=== PATIENT | female | born 1980 | race Caucasian/White ===

== ENCOUNTER 2018-10-18 11:17 | Emergency (ER) | payer SELFPAY ==
[2018-10-18 11:27] VITALS: BP 117/74; PULSE 73; RESP 24; TEMP 36.5; O2SAT 97
--- NOTE | 2018-10-20 20:11 | ED.GENADUL_ITS ---
Discharge Plan Disposition Patient Disposition: HOME Condition: Fair Discharge Details Chief Complaint: DentalOral Clinical Impression: Abscess, dental Primary Care Provider: None,None ED Provider: Cira Davila Home Meds and New Rx's Prescriptions: New penicillin V potassium 500 mg tablet 500 mg PO QID Qty: 40 RF: 0 Discharge Instructions Instructions: Dental Abscess (ED) Additional Instructions: Keep head of bed elevated. Ice to the cheek for comfort. Tylenol for soreness if needed with food. use antibiotic as prescribed. Warm salt water rinses. Follow-up with dentist as soon as possible. Return for increase in swelling, pain or worsening as discussed sooner if needed Discharge Data Discharge Date/Time-TO BE ENTERED AT DEPARTURE: 10/18/18 12:10 Medical Decision Making Patient with early dental abscess who does not desire incision and drainage at this time. Patient will consent to antibiotic treatment. Patient treated appropriately with antibiotics and encouraged follow-up with her dentist. Patient has tolerated penicillin in the past. Reports mild GI upset with penicillin. Counseled regarding appropriate care and management in addition to conservative treatments. Patient reports her understanding and agrees with plan of care. HPI General Date/Time Provider Initiated Documentation: 10/18/18 12:00 . HPI Narrative: Patient presents for complaints of dental pain and concern of possible dental abscess. Patient reports widespread dental caries. Patient reports pain for the last 3 days. Mild difficulty sleeping. Patient denies fever, chills, nausea vomiting. Eating drink without difficulty. No other complaints or concerns. Denies facial swelling. Related Data Home Medications Medication Instructions Recorded Confirmed penicillin V potassium 500 mg PO QID #40 tab 10/18/18 Previous Rx's Medication Instructions Recorded penicillin V potassium 500 mg PO QID #40 tab 10/18/18 Allergies Allergy/AdvReac Type Severity Reaction Status Date / Time cefaclor [Cefaclor] Allergy Unknown Unverified 10/18/18 11:34 diphenhydramine Allergy Unverified 10/18/18 11:34 ibuprofen Allergy Unverified 10/18/18 11:34 General Stated Complaint: DentalOral MELCHOR: 3 Review of Systems Review of Systems Narrative: CONSTITUTIONAL: The patient denies fevers, chills. EYES: Denies vision changes, blurry vision, or eye pain. ENT: Denies hearing changes, tinnitus, vertigo, sore throat. Dental pain CARDIAC: Denies chest pain, SOB. RESPIRATORY: Denies cough, sputum. Denies difficulty breathing. GASTROINTESTINAL: Denies abdominal pain, changes in bowel, vomiting or nausea. GENITOURINARY: Denies dysuria, or frequency of urination. MUSCULOSKELETAL: Denies Joint pain, gait changes. NEUROLOGIC: Denies headaches, Denies focal weakness. Denies numbness. INTEGUMENT: Denies rashes. PSYCHIATRIC: Denies behavior changes. Denies anxiety or depression. ENDOCRINOLOGY: Denies fatigue. PSYCHIATRY: Denies depression, agitation or anxiety ROS Unobtainable: All systems reviewed & are unremarkable except as noted in HPI and below [facility] Social History Smoking/Tobacco Use Status: Current every day Alcohol Intake: never Drug use: Occasionally Substance use type: does not use Do you feel safe at home: Yes Do you feel safe in your relationship?: Yes Exam Narrative Exam Narrative: CONST: Healthy appearing patient, in no acute distress. Well hydrated. Alert and alert. HENMT: Head nomocephalic, normal to inspection. Atraumatic. Hearing grossly normal. Patient has widespread dental caries with early abscess formation in the inner aspect of the tooth in the right lower jaw. EYES: General normal appearance. Alignment normal. Eyelids normal. Conjunctiva normal. NECK: Normal visual inspection. FROM. Trachea midline. No Midline tenderness. CHEST: Normal insepection of the chest. RESP: Normal respiratory effort. Speaking full sentences. No cough. No audible wheezing. No retractions. CARDIO: No JVD. MUSCULOSKELETAL: Normal Gait. FROM of all extremities. SKIN: Normal. Dry. No rashes. NEURO: Alert and awake. Speech clear. PSYCH: Normal affect. Cooperative. Course Vital Signs Vital signs: Vital Signs Temperature 36.5 C 10/18/18 11:27 Pulse 73 10/18/18 11:27 Respiratory Rate 24 10/18/18 11:27 Blood Pressure 117/74 10/18/18 11:27 Pulse Oximetry 97 10/18/18 11:27 Temperature 36.5 C 10/18/18 11:27 Temperature Source Skin 10/18/18 11:27 Pulse 73 10/18/18 11:27 Respiratory Rate 24 10/18/18 11:27 Respiratory Effort Non-Labored 10/18/18 11:33 Blood Pressure 117/74 09/12/19 11:27 Blood Pressure Position Sitting 10/18/18 11:27 Pulse Oximetry 97 10/18/18 11:27 Oxygen Delivery Method Room Air 10/18/18 11:27 Oxygen Flow Rate 0 10/18/18 11:27 Pain Level 10 10/18/18 12:20
== END 2018-10-18 12:10 | disposition home or self-care (01) ==
LOC: ER 12:48
PROVIDERS: Emergency Provider Physician Assistant
DX: K04.7 Periapical abscess without sinus (principal)
CPT/HCPCS: 99283

== ENCOUNTER 2023-03-11 14:53 | Emergency (ER) | payer SELFPAY ==
[2023-03-11] VITALS (29 sets, daily range): BP systolic 99–123; BP diastolic 70–94; PULSE 47–147; RESP 13–29; TEMP 35.5; O2SAT 96–100
--- NOTE | 2023-03-11 15:08 | ED.GENADUL_ITS ---
HPI General Mode of arrival: ambulatory . Date/Time Provider Initiated Documentation: 03/11/23 14:54 . Limitations to Documentation: no limitations . Information obtained by: patient . History of Present Illness 42 year old F presents to the emergency department with the chief complaint of opiate withdrawal, described as moderate, Patient started experiencing this hour(s) (4) and it has been constant. No relieving factors improve symptom(s), No exacerbating factors reported . Patient did receive the following treatments prior to arrival, none Related Data Home Medications Medication Instructions Recorded Confirmed Unknown [No Known Home Meds] 03/11/23 03/11/23 Allergies Allergy/AdvReac Type Severity Reaction Status Date / Time cefaclor [Cefaclor] Allergy Unknown Unverified 03/11/23 15:02 diphenhydramine Allergy Unverified 03/11/23 15:02 ibuprofen Allergy Unverified 03/11/23 15:02 General Stated Complaint: DrugWithdr/MAT MELCHOR: 3 Review of Systems All systems reviewed & are unremarkable except as noted in HPI and below Constitutional Constitutional: Denies chills, Denies fever(s) and Denies weakness Cardiovascular Cardiovascular: Denies chest pain and Denies dyspnea Respiratory Respiratory: Denies cough and Denies dyspnea Gastrointestinal Gastrointestinal: Denies abdominal pain, Reports diarrhea, Reports nausea and Reports vomiting Integumentary/Breasts Skin/Breast: Denies rash Neurologic Neurologic: Denies weakness Exam Const Orientation: alert HENME Head: normal to inspection Ears: external ears normal General nose exam: external nose normal Mouth: moist mucous membranes Eyes General: appearance normal, both eyes and all related structures Neck Neck: normal visual inspection Resp Effort & Inspection: normal respiratory effort and able to speak in complete sentences Auscultation: clear to auscultation bilaterally Cardio Jugular venous pressure: no JVD Rate: regular rate GI Palpation: not firm, no guarding and nontender Skin General skin exam: no rashes or lesions noted Neuro General: patient alert and patient oriented x3 Extrem General: normal to inspection Psych Mental Status: mental status grossly normal Course Vital Signs Vital signs: Vital Signs Temperature 35.5 C L 03/11/23 14:56 Pulse 67 03/11/23 14:56 Respiratory Rate 18 03/11/23 14:56 Blood Pressure 118/83 03/11/23 14:56 Pulse Oximetry 100 03/11/23 14:56 Temperature 35.5 C L 03/11/23 14:56 Temperature Source Temporal Artery Scan 03/11/23 14:56 Pulse 67 03/11/23 14:56 Respiratory Rate 18 03/11/23 14:56 Respiratory Effort Normal 03/11/23 15:03 Respiratory Pattern Tachypnea 03/11/23 15:03 Blood Pressure 118/83 03/11/23 14:56 Blood Pressure Position Sitting 03/11/23 14:56 Pulse Oximetry 100 03/11/23 14:56 Oxygen Delivery Method Room Air 03/11/23 14:56 Oxygen Flow Rate 0 03/11/23 14:56 Medical Decision Making 42 yo female who states the last 3 years she has used fentanyl and heroin routinely comes in with complaints of having nausea/vomiting and diarrhea and chills for 4 hours and last used this morning. Denies chest pain, dyspnea, fevers, abdominal pain. She does appear anxious during exam, caox4 speaking clearly, no tremors noted. She denies iv drug use states only smokes/snorts it. Suspect opiate withdrawal, will treat with clonidine and ativan and reassess. pt sleeping and awakens easily to verbal stimuli, stable vitals, she declines buprenorphine, she will f/u with [facility] and return precautions given. She did have abnormalities on her cbc, she has no fevers and again denies ivdu so doubt sepsis, advised she should have a repeat cbc done with her pcp within a month Differential Diagnosis Differential Diagnosis: opiate withdrawal, drug abuse Quality:SDOH Health Related Social Needs: Health related social needs risk of homeless, material hardship, food insecurity, transpo insecurity, personal safety PFSH All Active Problems (Updated 03/11/23 @ 17:16 by Domingo Phillips MD) Acute opioid withdrawal (Acute) Social History Smoking/Tobacco Use Status: Current every day Smoking risk assessment performed?: Yes Alcohol Intake: never Drug use: Daily Substance use type: does not use Do you feel safe at home: Yes Do you feel safe in your relationship?: Yes Discharge Plan Disposition Patient Disposition: Home Condition: Stable Discharge Details Clinical Impression: Acute opioid withdrawal Primary Care Provider: None,None ED Provider: Domingo Phillips Home Meds and New Rx's Prescriptions: No Action No Known Home Meds Discharge Instructions Additional Instructions: follow up with the [facility] Monday you should have a repeat cbc lab test done with your primary care provider within 1 month if you feel more ill, have severe worsening symptoms or new symptoms such as difficulty breathing return to the emergency department
[2023-03-11 15:28] LABS: Abs Immature Grans 0.06 10^3/uL (0.0-0.06); Absolute Basophil Count 0.05 10^3/uL (0.0-0.2); Absolute Lymphocyte Count 1.94 10^3/uL (1.2-3.4); Basophils % 0.3; HCT 39.1 % (36.0-46.0); HGB 12.5 g/dL (11.2-15.7); Immature Grans % 0.4; Lymphocytes % 12.4; MCH 21.5 pg (27.0-33.0); MCV 67 fL (80-95); MPV 10.5 fL (8.0-11.0); Monocytes % 5.2; Neutrophils % 81.7; Platelet Count 284 10^3/uL (130-400); RBC 5.82 10^6/uL (3.93-5.22); RDW 14.8 % (11.7-14.6); RDW-SD 33.9 fL; WBC 15.68 10^3/uL (4.4-10.8)
[2023-03-11] MEDS: Normal Saline 1,000 ML 1000 ML IV (15:31)
[2023-03-11] MEDS: LORazepam 2 MG/ML VIAL 1 MG IVP (15:32)
[2023-03-11] MEDS: cloNIDine 0.1 MG TAB PO (15:32)
[2023-03-11 15:36] LABS: Absolute Monocyte Count 0.82 10^3/uL (0.1-0.8); Absolute Neutrophil Count 12.81 10^3/uL (1.2-6.7)
[2023-03-11 15:40] LABS: Magnesium 2.1 mg/dL (1.8-2.4)
[2023-03-11 15:44] LABS: ALT 20 U/L (14-59); AST 10 U/L (15-37); Albumin 3.6 g/dL (3.4-5.0); Alkaline Phosphatase 68 U/L (46-116); BUN 10 mg/dL (7-18); Bilirubin, Total 0.4 mg/dL (0.2-1.0); CREATININE 0.7 mg/dL (0.55-1.02); Calcium 8.9 mg/dL (8.5-10.1); Estimated GFR 111.36 (mL/min/1.73m2); Glucose 95 mg/dL (74-106)
[2023-03-11 15:49] LABS: Diff Comment RBC Morph Reviewed; Microcytosis 2+; Poikilocytes 1+; Polychromasia Present
[2023-03-11 15:50] LABS: Anion Gap 6.5 mmol/L (3-11); CO2 27.5 mmol/L (21.0-32.0); Chloride 105 mmol/L (98-107); Potassium 3.9 mmol/L (3.5-5.1); Sodium 139 mmol/L (136-145)
== END 2023-03-11 17:46 | disposition home or self-care (01) ==
PROVIDERS: Emergency Provider Emergency Medicine
DX: F11.93 Opioid use, unspecified with withdrawal (principal)
CPT/HCPCS: 80053; 96361; 96374; 99284; 83735; 85025; J2060

== ENCOUNTER 2023-05-21 11:11 | Emergency (ER) | payer SELFPAY ==
[2023-05-21 11:15] VITALS: BP 95/63; PULSE 52; RESP 18; TEMP 37; O2SAT 99
--- NOTE | 2023-05-21 11:23 | ED.GENADUL_ITS ---
Discharge Plan Disposition Patient Disposition: Home Condition: Stable Discharge Details Chief Complaint: InsectBite Clinical Impression: Tick bite Primary Care Provider: Unknown,Unknown ED Provider: Domingo Phillips Home Meds and New Rx's Prescriptions: No Action No Known Home Meds Discharge Instructions Additional Instructions: Follow-up with your primary care provider as needed Return to the emergency department if you feel more ill, develop high fevers or a bull's-eye lesion on your body. HPI General Mode of arrival: ambulatory . Date/Time Provider Initiated Documentation: 05/21/23 11:18 . Limitations to Documentation: no limitations . Information obtained by: patient . History of Present Illness 42 year old F presents to the emergency department with the chief complaint of tick bite, described as mild, and is localized to the head. Patient reports no radiation. and it has been now resolved. No relieving factors improve symptom(s), No exacerbating factors reported . Patient notes no other symptoms.. Patient did receive the following treatments prior to arrival, none Related Data Home Medications Medication Instructions Recorded Confirmed Unknown [No Known Home Meds] 03/11/23 03/11/23 Allergies Allergy/AdvReac Type Severity Reaction Status Date / Time tree nut Allergy Severe Anaphylaxis Verified 05/21/23 11:19 cefaclor [Cefaclor] Allergy Unknown Other (See Unverified 05/21/23 11:19 Comment) diphenhydramine Allergy Other (See Unverified 05/21/23 11:19 Comment) ibuprofen Allergy Other (See Unverified 05/21/23 11:19 Comment) General Stated Complaint: InsectBite MELCHOR: 4 Review of Systems All systems reviewed & are unremarkable except as noted in HPI and below Constitutional Constitutional: Denies chills, Denies fever(s) and Denies weakness Cardiovascular Cardiovascular: Denies chest pain and Denies dyspnea Respiratory Respiratory: Denies cough and Denies dyspnea Gastrointestinal Gastrointestinal: Denies abdominal pain, Denies nausea and Denies vomiting Musculoskeletal Musculoskeletal: Denies joint swelling Neurologic Neurologic: Denies weakness Exam Const General: no acute distress Orientation: alert HENMT Head: normal to inspection Ears: external ears normal General nose exam: external nose normal Mouth: moist mucous membranes Eyes General: appearance normal, both eyes and all related structures Neck Neck: normal visual inspection Resp Effort & Inspection: normal respiratory effort and able to speak in complete sentences Cardio Rate: regular rate Skin General skin exam: no rashes or lesions noted Neuro General: patient alert and patient oriented x3 Extrem General: normal to inspection Psych Mental Status: mental status grossly normal Course Vital Signs Vital signs: Vital Signs Temperature 37.0 C 05/21/23 11:15 Pulse 52 L 05/21/23 11:15 Respiratory Rate 18 05/21/23 11:15 Blood Pressure 95/63 L 05/21/23 11:15 Pulse Oximetry 99 05/21/23 11:15 Temperature 37.0 C 05/21/23 11:15 Temperature Source Tympanic 05/21/23 11:15 Pulse 52 L 05/21/23 11:15 Respiratory Rate 18 05/21/23 11:15 Blood Pressure 95/63 L 05/21/23 11:15 Pulse Oximetry 99 05/21/23 11:15 Medical Decision Making 42-year-old female comes in stating that she removed a tick from her right posterior head this morning. She is unsure exactly how long it was on but thinks it was small over 24 hours. She removed it from the right posterior head, states most of the tick seemed intact. She has no other symptoms no fevers or chills or bodyaches. She has been very mild erythema about 5 mm in diameter on the right posterior head where she removed the tick without any evidence of retained foreign body. No bull's-eye lesion. Given unclear how long the tick was on for will give one-time dose of doxycycline here. Advised to follow-up with PCP as needed return precautions given Differential Diagnosis Differential Diagnosis: Tick bite, wound Quality:SDOH Health Related Social Needs: Health related social needs risk of homeless, material hardship, food insecurity, transpo insecurity, personal safety PFSH All Active Problems (Updated 05/21/23 @ 11:27 by Domingo Phillips MD) Tick bite (Acute) Social History Smoking/Tobacco Use Status: Current every day Smoking risk assessment performed?: Yes Alcohol Intake: never Drug use: Daily Substance use type: does not use Do you feel safe at home: Yes Do you feel safe in your relationship?: Yes
[2023-05-21 11:38] VITALS: BP 95/63; PULSE 52; RESP 18; TEMP 37; O2SAT 99
[2023-05-21] MEDS: Doxycycline Hyclate 100 MG CAP 200 MG PO (13:08)
== END 2023-05-21 11:45 | disposition home or self-care (01) ==
PROVIDERS: Emergency Provider Emergency Medicine
DX: W57.XXXA Bitten or stung by nonvenomous insect and other nonvenomous arthropods, initial encounter; S00.06XA Insect bite (nonvenomous) of scalp, initial encounter; F17.210 Nicotine dependence, cigarettes, uncomplicated
CPT/HCPCS: 99283

== ENCOUNTER 2024-02-05 09:26 | Emergency (ER) | payer MEDICAID, SELFPAY ==
[2024-02-05 09:32] VITALS: BP 119/91; PULSE 68; RESP 18; TEMP 36.6; O2SAT 96
[2024-02-05] MEDS: Acetaminophen 500 MG TAB 1000 MG PO (10:14)
[2024-02-05] MEDS: Prochlorperazine 10 MG/2 ML VIAL IVP (10:15)
[2024-02-05] MEDS: methylPREDNISolone SUCC 125 MG VIAL IVP (10:15)
--- NOTE | 2024-02-05 10:15 | DI.CT_ITS ---
Exam(s) CT HEAD WO EXAM: CT HEAD WO CLINICAL HISTORY: left sided headache, eval for tumor. TECHNIQUE: Imaging Protocol: Axial computed tomography images with coronal and sagittal reformatted images were created and reviewed COMPARISON: No exams were available for comparison FINDINGS: There are no skull fractures. There is fluid in the partially included left maxillary sinus noted con sistent with sinusitis. Also some fluid in the ipsilateral left-sided ethmoidal air cells. Mild flu id left frontal sinus. Sphenoid sinuses are clear. Mastoid air cells clear. There is no evidence of intracranial hemorrhage, mass effect, or shift of midline structures. There are no extra-axial fluid collections. The ventricles are not enlarged or shifted and there is no blo od within the ventricular system nor within the basal cisterns. IMPRESSION: No acute intracranial findings on this noninfused CT scan of the brain. Left-sided sinusitis as described above. Called by myself to ER physician 02/05/2024 10:44 a.m. RADIATION DOSE DELIVERED: 840.98mGy.cm Total DLP DATA REPOSITORY: All CT scans at this facility are submitted to the National Radiology Data Registry (NRDR) Dose Index Registry (DIR) with the [employer] ([employer]). RADIATION OPTIMIZATION: All CT scans at this facility use at least one of these dose optimization te chniques: automated exposure control; mA and/or kV adjustment per patient size (includes targeted exa ms where dose is matched to clinical indication); or iterative reconstruction.
[2024-02-05 11:24] VITALS: BP 92/50; PULSE 51; RESP 16; O2SAT 96
--- NOTE | 2024-02-05 11:24 | ED.GENADUL_ITS ---
Discharge Plan Disposition Patient Disposition: Home Condition: Good Discharge Details Clinical Impression: Pain, dental, Left maxillary sinusitis, Left temporal headache Primary Care Provider: Unknown,Unknown ED Provider: Feliciano Nieto Home Meds and New Rx's Prescriptions: New amoxicillin-pot clavulanate 875-125 mg tablet 1 tab PO BID 14 Days Qty: 28 0RF No Action methadone [Methadose] 10 mg/mL concentrate 105 mg PO DAILY Patient Comments: @ [facility] Discharge Instructions Instructions: Chronic sinusitis, Dental Pain ED Additional Instructions: At this time you have evidence of sinusitis. Please take the antibiotic as directed which will treat both your teeth and your sinus infection. Please use [place] Bhat at home and [id number] nasal decongestions to help drain the sinus infection. If you notice any worsening of your symptoms, or any new symptoms such as vomiting, diarrhea, fever, chills, shortness of breath, chest pain, numbness, weakness, or fainting , please return immediately to the emergency department for reevaluation. Please follow up with your primary care provider as soon as possible for reassessment and reevaluation. As always, it was a pleasure participating in your medical care today. Discharge Data Discharge Date/Time-TO BE ENTERED AT DEPARTURE: 02/05/24 11:34 HPI General Date/Time Provider Initiated Documentation: 02/05/24 09:42 . HPI Narrative: 43-year-old female with a past medical history of allergies to cefaclor, tree nuts, Benadryl and ibuprofen, with a past surgical history of cholecystectomy and tubal ligation presents today for evaluation of left-sided headache. Patient states that for the last 5 days she has had a mild left-sided headache, it started in the left temporal region, but then recently has transition to a pressure behind her left eye, as well as pain in her left upper teeth. She does have a family history positive for brain tumor and glaucoma. She denies any discharge from the mouth. She did take an Augmentin at home which was an old antibiotic that she had lying around from a previous dental infection. She has taken some NSAID therapy with minimal improvement. She denies any fever or chills. Denies any neck pain or stiffness. She denies any other complaints at this time. No trauma. No vision changes. Her headache is made worse with light and loud noise. The patient denies any headache red flags of worst headache of life, thunderclap headache, neck pain, fever, chills, concerning family history of polycystic kidney disease, Marfan syndrome, Lucía- Danlos syndrome, abdominal aortic aneurysm, aortic dissection, or intracranial aneurysm. Additionally the patient does admit to a history of migraines in the past which she states this feels quite similar to. Related Data Home Medications ?Medication ?Instructions ?Recorded ?Confirmed amoxicillin 875 mg-potassium 1 tab PO BID 14 days #28 tabs 02/05/24 clavulanate 125 mg tablet methadone 10 mg/mL oral 105 mg PO DAILY 02/05/24 02/05/24 concentrate (Methadose) Previous Rx's ?Medication ?Instructions ?Recorded amoxicillin 875 mg-potassium 1 tab PO BID 14 days #28 tabs 02/05/24 clavulanate 125 mg tablet Allergies Allergy/AdvReac Type Severity Reaction Status Date / Time tree nut Allergy Severe Anaphylaxis Verified 02/05/24 09:34 cefaclor (Cefaclor) Allergy Unknown Other (See Unverified 02/05/24 09:34 Comment) diphenhydramine Allergy Other (See Unverified 02/05/24 09:34 Comment) ibuprofen Allergy Other (See Unverified 02/05/24 09:34 Comment) General Stated Complaint: DentalOral MELCHOR: 4 Exam Narrative Exam Narrative: 1.Const: Well-nourished, Well-developed, appearing stated age 2.Eyes: PERRL, no conjunctival injection, and symmetrical lids. 3.ENT: Atraumatic external nose and ears. Moist MM. Neck: Symmetric, trachea mi dline, No thyromegaly. Notably poor dentition throughout, however no evidence of periapical abscess on palpation of the upper and lower teeth. No palpable tender temporal artery. Patient demonstrates good movement of cervical neck. There is no nuchal rigidity, no nuchal tenderness. Patient is able to flex the neck without any difficulty or significant pain. Negative Kernig's and Brudzinski sign. Tympanic membranes are walker and pearly. 4.CVS: +S1/S2, Peripheral pulses 2+ and equal in all extremities. Brisk capillary refill in all extremities. 5.RESP: Unlabored respiratory effort. Clear to auscultation bilaterally. No wheezes rales or rhonchi 6.GI: Soft, Nontender/Nondistended, No hepatosplenomegaly. No guarding or rebound. 7.MSK: Normocephalic/Atraumatic, Extremities w/o deformity or ttp No cyanosis or clubbing, Normal movement of all extremities 8.Skin: Warm, Dry. No rashes or lesions. 9.Neuro: fisher weir II-XII grossly intact. Sensation grossly intact, no focal neurologic deficits. All 6 cardinal planes of vision are fully intact. No evidence of rotatory or vertical nystagmus. The patient demonstrated a normal [id number], good dexterity. There was no evidence of dysdiadochokinesia. Patient was able to ambulate without difficulty. There was no wide-based gait. Romberg testing was normal. [id number] testing was normal. Sensation was intact bilaterally as well as muscle strength bilaterally for all extremities. Patient was able to verbalize butter cup with no slurring, or miss pronunciation. 10.Psych: (AAO) x3. Appropriate mood and affect Course Vital Signs Vital signs: Vital Signs Temperature 36.6 C 02/05/24 09:32 Pulse 68 02/05/24 09:32 Respiratory Rate 18 02/05/24 09:32 Blood Pressure 119/91 H 02/05/24 09:32 Pulse Oximetry 96 02/05/24 09:32 Temperature 36.6 C 02/05/24 09:32 Temperature Source Oral 02/05/24 09:32 Pulse 68 02/05/24 09:32 Respiratory Rate 18 02/05/24 09:32 Blood Pressure 119/91 H 02/05/24 09:32 Blood Pressure Position Sitting 02/05/24 09:32 Pulse Oximetry 96 02/05/24 09:32 Oxygen Delivery Method Room Air 02/05/24 09:32 Oxygen Flow Rate 0 02/05/24 09:32 Pain Level 8 02/05/24 09:32 Medical Decision Making 43-year-old female with a past medical history of allergies to cefaclor, tree nuts, Benadryl and ibuprofen, with a past surgical history of cholecystectomy and tubal ligation presents today for evaluation of left-sided headache. Patient states that for the last 5 days she has had a mild left-sided headache, it started in the left temporal region, but then recently has transition to a pressure behind her left eye, as well as pain in her left upper teeth. She does have a family history positive for brain tumor and glaucoma. S he denies any discharge from the mouth. She did take an Augmentin at home which was an old antibiotic that she had lying around from a previous dental infection. She has taken some NSAID therapy with minimal improvement. She denies any fever or chills. Denies any neck pain or stiffness. She denies any other complaints at this time. No trauma. No vision changes. Her headache is made worse with light and loud noise. The patient denies any headache red flags of worst headache of life, thunderclap headache, neck pain, fever, chills, concerning family history of polycystic kidney disease, Marfan syndrome, Lucía- Danlos syndrome, abdominal aortic aneurysm, aortic dissection, or intracranial aneurysm. Additionally the patient does admit to a history of migraines in the past which she states this feels quite similar to. Physical exam demonstrates reassuring assessment, no neurologic deficits, no new nuchal rigidity to suggest meningitis. No evidence of tympanic membrane infection or abnormality otherwise. No mastoid tenderness. Differential includes migraine headache, tumor is unlikely but on the differential. Optic pressure testing was performed, she demonstrates equal pressures bilaterally at 21. No evidence to suggest acute angle-closure glaucoma. Additionally sinusitis and dental infection could certainly be a component of her symptomatology. Symptoms appear clinically inconsistent with optic neuritis with no vision changes for coloration, they appear inconsistent with giant cell temporal arteritis with no temporal artery tenderness. Will get CT imaging of the head, treat the patient's pain with migraine cocktail, monitor closely and reassess. 11:[address] imaging shows left-sided sinusitis, no acute intracranial process otherwise. Patient has notable relief of her symptomatology after medications and feels well and was able to get some rest. We will treat with Augmentin for home use for both the sinusitis and the cysts back to dental infection. Recommend follow-up with her dentist. Recommend continued NSAID therapy at home and rest. Discussed red flags for which to return. Patient appears neurologically intact. Patient stable for discharge. I have extensively reviewed the treatment plan and discharge instructions with the patient. I have addressed all patient concerns at this time. The patient was made aware of what symptoms to monitor for that would warrant a return to the emergency department. Discussed the plan with the patient, they demonstrate verbal understanding and agreement with our assessment and plan at this time. The documentation in this chart was dictated using [employer] dictation software. Please excuse any dictation errors. FINDINGS: There are no skull fractures. There is fluid in the partially included left maxillary sinus noted consistent with sinusitis. Also some fluid in the ipsilateral left-sided ethmoidal air cells. Mild fluid left frontal sinus. Sphenoid sinuses are clear. Mastoid air cells clear. There is no evidence of intracranial hemorrhage, mass effect, or shift of midline structures. There are no extra-axial fluid collections. The ventricles are not enlarged or shifted and there is no blood within the ventricular system nor within the basal cisterns. IMPRESSION: No acute intracranial findings on this noninfused CT scan of the brain. Left-sided sinusitis as described above. Quality:SDOH Health Related Social Needs: Health related social needs housing instability, house d, with risk of homelessness(Z59.811), material hardship(utilities)(Z59.87), food insecurity(Z59.41), transportation insecurity(Z59.82), problem related to primary support group(Z63.9) PFSH All Active Problems (Updated 02/05/24 @ 11:25 by Feliciano Nieto DO) Left temporal headache (Acute) Left maxillary sinusitis (Acute) Pain, dental (Acute) Social History Smoking/Tobacco Use Status: Current every day Tobacco Type: cigarettes and e- cigarettes Smoking risk assessment performed?: Yes Alcohol Intake: never Drug use: Daily Substance use type: marijuana Housing: other Do you feel safe at home: Yes Do you feel safe in your relationship?: Yes
== END 2024-02-05 11:34 | disposition home or self-care (01) ==
PROVIDERS: Emergency Provider Student in an Organized Health Care Education/Training Program
DX: R51.9 Headache, unspecified (principal); J01.00 Acute maxillary sinusitis, unspecified; K08.89 Other specified disorders of teeth and supporting structures
CPT/HCPCS: 96374; 96375; 99284; 70450; J0780; J1200; J1885; J2919

== ENCOUNTER 2024-03-28 09:13 | Emergency (ER) | payer MEDICAID, SELFPAY ==
[2024-03-28] VITALS (51 sets, daily range): BP systolic 95–99; BP diastolic 57–72; PULSE 51–85; RESP 18; TEMP 36.7; O2SAT 92–97
[2024-03-28 10:31] LABS: COVID-19 PCR Negative (Negative); Influenza A PCR Positive (Negative); Influenza B PCR Negative (Negative); RSV PCR Negative (Negative)
[2024-03-28 10:32] LABS: Source Nasopharynx
[2024-03-28] MEDS: Lactated Ringers 1,000 ML 1000 ML IV (10:55)
[2024-03-28] MEDS: Metoclopramide 10 MG/2 ML VIAL IVP (10:55)
[2024-03-28] MEDS: ACETAMINOPHEN 1,000 MG/100 ML BAG 400 MG IVPB (10:56)
[2024-03-28 11:04] LABS: Abs Immature Grans 0.01 10^3/uL (0.0-0.06); Absolute Basophil Count 0.03 10^3/uL (0.0-0.2); Absolute Lymphocyte Count 1.14 10^3/uL (1.2-3.4); Absolute Monocyte Count 0.58 10^3/uL (0.1-0.8); Absolute Neutrophil Count 2.99 10^3/uL (1.2-6.7); Basophils % 0.6 %; HCT 32.7 % (36.0-46.0); HGB 10.6 g/dL (11.2-15.7); Immature Grans % 0.2 %; MCH 22.7 pg (27.0-33.0); MCHC 32.4 % (32.0-36.0); MCV 70 fL (80-95); MPV 11.2 fL (8.0-11.0); Monocytes % 12.2 %; Platelet Count 202 10^3/uL (130-400); RBC 4.67 10^6/uL (3.93-5.22); RDW 14.7 % (11.7-14.6); RDW-SD 35.9 fL; WBC 4.75 10^3/uL (4.4-10.8)
[2024-03-28 11:25] LABS: ALT 17 U/L (14-59); AST 16 U/L (15-37); Albumin 3.2 g/dL (3.4-5.0); Alkaline Phosphatase 58 U/L (46-116); Anion Gap 7.5 mmol/L (3-11); BUN 6 mg/dL (7-18); Bilirubin, Total 0.25 mg/dL (0.2-1.0); CO2 28.5 mmol/L (21.0-32.0); CREATININE 0.7 mg/dL (0.55-1.02); Calcium 8.3 mg/dL (8.5-10.1); Chloride 104 mmol/L (98-107); Estimated GFR 110.67 (mL/min/1.73m2); Glucose 83 mg/dL (74-106); Magnesium 2.1 mg/dL (1.8-2.4); Potassium 4.3 mmol/L (3.5-5.1); Sodium 140 mmol/L (136-145); Total Protein 6.5 g/dL (6.4-8.2)
[2024-03-28 11:30] LABS: Diff Comment Diff Reviewed; Microcytosis 2+; Polychromasia Present
[2024-03-28 11:31] LABS: Poikilocytes 1+
[2024-03-28 11:34] LABS: Troponin I < 4 ng/L (<or=51)
[2024-03-28 12:29] LABS: Creatine Kinase 55 U/L (26-192)
--- NOTE | 2024-03-28 12:35 | ED.GENADUL_ITS ---
Discharge Plan Disposition Patient Disposition: Home Condition: Stable Discharge Details Clinical Impression: Influenza A, Anemia Primary Care Provider: Unknown,Unknown ED Provider: Rosales Cantor Home Meds and New Rx's Prescriptions: New metoclopramide HCl [Reglan] 10 mg tablet 10 mg PO BID PRN PRN (Reason: nausea and vomiting) Qty: 10 0RF Continued methadone [Methadose] 10 mg/mL concentrate 95 mg PO DAILY Patient Comments: verified dose 03/28/24 w/Екатерина @ [facility]- last dose given 03/27/24 Discharge Instructions Instructions: Flu, Adult ED Additional Instructions: Please drink plenty of fluid to stay hydrated. Allow for plenty of rest. Your hemoglobin was low today. This is consistent with anemia. Please be sure to follow-up with your doctor. Additional outpatient diagnostic testing may be necessary. Please follow-up with your primary care physician. Call today. Return to the emergency department immediately for any worsening or new concerning symptoms. Discharge Data Discharge Date/Time-TO BE ENTERED AT DEPARTURE: 03/28/24 13:09 HPI General Mode of arrival: ambulatory . Date/Time Provider Initiated Documentation: 03/28/24 09:29 . Limitations to Documentation: no limitations . Information obtained by: patient . HPI Narrative: HISTORY OF PRESENT ILLNESS 43-year-old female with opioid use disorder on methadone presents with cough, congestion, chills, and vomiting for the past week. Reports general malaise, body aches, and a sensation of something lodged in her throat. No rashes or swelling. Mild cough, nasal congestion, and abdominal pain due to vomiting. No influenza or COVID-19 vaccinations. Difficulty keeping food down, vomiting even after water. No IV drug use, smokes cigarettes, no alcohol. No dysuria, normal urinary habits. Allergy to NSAIDs, no Tylenol taken. History of cholecystectomy, appendix intact. Reports constipation with bowel movements every few days. Related Data Home Medications ?Medication ?Instructions ?Recorded ?Confirmed methadone 10 mg/mL oral 95 mg PO DAILY 02/05/24 03/28/24 concentrate (Methadose) metoclopramide HCl 10 mg tablet 10 mg PO BID PRN PRN nausea and 03/28/24 (Reglan) vomiting #10 tabs Previous Rx's ?Medication ?Instructions ?Recorded metoclopramide HCl 10 mg tablet 10 mg PO BID PRN PRN nausea and 03/28/24 (Reglan) vomiting #10 tabs Allergies Allergy/AdvReac Type Severity Reaction Status Date / Time tree nut Allergy Severe Anaphylaxis Verified 03/28/24 09:25 cefaclor (Cefaclor) Allergy Unknown Other (See Unverified 03/28/24 09:25 Comment) diphenhydramine Allergy Other (See Unverified 03/28/24 09:25 Comment) ibuprofen Allergy Other (See Unverified 03/28/24 09:25 Comment) General Stated Complaint: Nausea/Vomit/Diar MELCHOR: 3 Review of Systems Narrative: REVIEW OF SYSTEMS Negative for rash or swelling. Positive for cough and congestion. Negative for dysuria. All systems reviewed & are unremarkable except as noted in HPI and below Course Vital Signs Vital signs: Vital Signs Temperature 36.7 C 03/28/24 09:20 Pulse 85 03/28/24 09:20 Respiratory Rate 18 03/28/24 09:20 Blood Pressure 95/57 L 03/28/24 09:20 Pulse Oximetry 96 03/28/24 09:20 Temperature 36.7 C 03/28/24 09:20 Pulse 85 03/28/24 09:20 Respiratory Rate 18 03/28/24 09:20 Blood Pressure 95/57 L 03/28/24 09:20 Pulse Oximetry 96 03/28/24 09:20 Oxygen Delivery Method Room Air 03/28/24 09:20 Oxygen Flow Rate 0 03/28/24 09:20 Lab/Test Results Lab/Test Results: Laboratory Tests Range/Units 03/28/24 03/28/24 09:45 10:50 WBC (4.4-10.8) 10^3/uL 4.75 RBC (3.93-5.22) 10^6/uL 4.67 Hgb (11.2-15.7) g/dL 10.6 L Hct (36.0-46.0) % 32.7 L MCV (80-95) fL 70 L MCH (27.0-33.0) pg 22.7 L MCHC (32.0-36.0) % 32.4 RDW (11.7-14.6) % 14.7 H Plt Count (130-400) 10^3/uL 202 MPV (8.0-11.0) fL 11.2 H Immature Gran % % 0.2 Neutrophils % % 63.0 Lymphocytes % % 24.0 Monocytes % % 12.2 Eosinophils % % 0.0 Basophils % % 0.6 Nucleated RBC % (0.0-0.3) % 0.0 Absolute Neutrophils (1.2-6.7) 10^3/uL 2.99 Absolute Lymphocytes (1.2-3.4) 10^3/uL 1.14 L Absolute Monocytes (0.1-0.8) 10^3/uL 0.58 Absolute Eosinophils (0.0-0.7) 10^3/uL 0.00 Absolute Basophils (0.0-0.2) 10^3/uL 0.03 RBC Morphology See Below Polychromasia Present Poikilocytosis 1+ Microcytosis 2+ Sodium (136-145) mmol/L 140 Potassium (3.5-5.1) mmol/L 4.3 Chloride (98-107) mmol/L 104 Carbon Dioxide (21.0-32.0) mmol/L 28.5 Anion Gap (3-11) mmol/L 7.5 BUN (7-18) mg/dL 6 L Creatinine (0.55-1.02) mg/dL 0.7 Est GFR (CKD-EPI 2020) (mL/min/1.73m2) 110.67 Glucose (74-106) mg/dL 83 Calcium (8.5-10.1) mg/dL 8.3 L Magnesium (1.8-2.4) mg/dL 2.1 Total Bilirubin (0.2-1.0) mg/dL 0.25 AST (15-37) U/L 16 ALT (14-59) U/L 17 Alkaline Phosphatase (46-116) U/L 58 Creatine Kinase (26-192) U/L 55 Troponin I (<or=51) ng/L < 4 Total Protein (6.4-8.2) g/dL 6.5 Albumin (3.4-5.0) g/dL 3.2 L COVID-19 Source Nasopharynx SARS-CoV-2 (PCR) (Negative) Negative Influenza Type A (PCR) (Negative) Positive A Influenza Type B (PCR) (Negative) Negative RSV (PCR) (Negative) Negative Medical Decision Making ASSESSMENT AND PLAN Initial Assessment: 43-year-old female with history of opioid use disorder, pr esenting with cough, congestion, chills, and vomiting over the past week. Physical exam reveals mild upper abdominal tenderness, dry lips, and tongue. Differential Diagnosis: - Influenza: Suspected due to symptoms and positive influenza test. Plan includes supportive care, Zofran for nausea, Toradol for pain, and IV fluids for hydration. Conduct comprehensive labs for electrolytes, kidney, and liver function. Rule out COVID-19 with point of care and PCR testing. ED Course: - Administered Zofran for nausea. - Administered IV Tylenol for pain. - Administered IV fluids for hydration. - Conducted comprehensive labs: mild anemia noted, hemoglobin 10.6. - Influenza testing positive. - Patient reassessed and improved. -Confirmed patient's prescribed methadone and provided her daily dose. Final Assessment: Patient with influenza infection, mild anemia, and opioid use disorder. Treated with IV fluids, Zofran, and IV Tylenol. Comprehensive labs reviewed, and supportive care provided. Clinical Impression: - Influenza infection - Mild anemia Disposition: - Discharge: Plan for discharge with supportive care. - Follow-Up: Usual and customary discharge instructions reviewed. MDM Components Evaluation: - Number of Differential Diagnoses or Management Options: Influenza - Amount and Complexity of Data Reviewed: Comprehensive labs, chest x-ray, influenza test - Risk of Complication and Morbidity or Mortality: Moderate risk due to dehydration and opioid use disorder This document was written with the assistance of VINI Alfaro. The patient consented to its use. Lab Data Lab results reviewed: Yes I reviewed the patient's lab results. Labs: Laboratory Tests Range/Units 03/28/24 03/28/24 09:45 10:50 WBC (4.4-10.8) 10^3/uL 4.75 RBC (3.93-5.22) 10^6/uL 4.67 Hgb (11.2-15.7) g/dL 10.6 L Hct (36.0-46.0) % 32.7 L MCV (80-95) fL 70 L MCH (27.0-33.0) pg 22.7 L MCHC (32.0-36.0) % 32.4 RDW (11.7-14.6) % 14.7 H Plt Count (130-400) 10^3/uL 202 MPV (8.0-11.0) fL 11.2 H Immature Gran % % 0.2 Neutrophils % % 63.0 Lymphocytes % % 24.0 Monocytes % % 12.2 Eosinophils % % 0.0 Basophils % % 0.6 Nucleated RBC % (0.0-0.3) % 0.0 Absolute Neutrophils (1.2-6.7) 10^3/uL 2.99 Absolute Lymphocytes (1.2-3.4) 10^3/uL 1.14 L Absolute Monocytes (0.1-0.8) 10^3/uL 0.58 Absolute Eosinophils (0.0-0.7) 10^3/uL 0.00 Absolute Basophils (0.0-0.2) 10^3/uL 0.03 RBC Morphology See Below Polychromasia Present Poikilocytosis 1+ Microcytosis 2+ Sodium (136-145) mmol/L 140 Potassium (3.5-5.1) mmol/L 4.3 Chloride (98-107) mmol/L 104 Carbon Dioxide (21.0-32.0) mmol/L 28.5 Anion Gap (3-11) mmol/L 7.5 BUN (7-18) mg/dL 6 L Creatinine (0.55-1.02) mg/dL 0.7 Est GFR (CKD-EPI 2020) (mL/min/1.73m2) 110.67 Glucose (74-106) mg/dL 83 Calcium (8.5-10.1) mg/dL 8.3 L Magnesium (1.8-2.4) mg/dL 2.1 Total Bilirubin (0.2-1.0) mg/dL 0.25 AST (15-37) U/L 16 ALT (14-59) U/L 17 Alkaline Phosphatase (46-116) U/L 58 Creatine Kinase (26-192) U/L 55 Troponin I (<or=51) ng/L < 4 Total Protein (6.4-8.2) g/dL 6.5 Albumin (3.4-5.0) g/dL 3.2 L COVID-19 Source Nasopharynx SARS-CoV-2 (PCR) (Negative) Negative Influenza Type A (PCR) (Negative) Positive A Influenza Type B (PCR) (Negative) Negative RSV (PCR) (Negative) Negative Quality:SDOH Health Related Social Needs: No Data to Display PFSH All Active Problems Anemia (Chronic) Influenza A (Acute) Social History Smoking/Tobacco Use Status: Current every day Tobacco Type: cigarettes and e- cigarettes Smoking risk assessment performed?: Yes Alcohol Intake: never Drug use: Daily Substance use type: marijuana Housing: other Do you feel safe at home: Yes Do you feel safe in your relationship?: Yes
[2024-03-28] MEDS: Methadone Liquid 10 MG/ML 95 MG PO (13:03)
== END 2024-03-28 13:09 | disposition home or self-care (01) ==
PROVIDERS: Emergency Provider Student in an Organized Health Care Education/Training Program
DX: J10.1 Influenza due to other identified influenza virus with other respiratory manifestations (principal); D64.9 Anemia, unspecified
CPT/HCPCS: 36415; 80053; 82550; 87637; 96361; 96374; 96375; 99284; 83735; 84484; 85025; J0131; J2765

== ENCOUNTER 2024-12-18 13:05 | Emergency (ER) | payer MEDICAID, SELFPAY ==
[2024-12-18 13:10] VITALS: BP 107/73; PULSE 87; RESP 20; TEMP 36.8; O2SAT 98
--- NOTE | 2024-12-18 13:40 | DI.RAD_ITS ---
Exam(s) XR ANKLE LT COMPLETE EXAM: XR ANKLE LT COMPLETE CLINICAL HISTORY: let ankle pain. TECHNIQUE: 2D digital imaging was performed. COMPARISON: No exams were available for comparison FINDINGS: No evidence of acute fracture or widening the ankle mortise. Talar dome unremarkable. Bone density normal. No osseous lesions. No degenerative changes. No evidence of osseous tarsal coalition. No inferior calcaneal spur. Phleboliths are noted in the anterior calf. IMPRESSION: No acute osseous findings in the ankle. DATA REPOSITORY: RADIATION DOSE DELIVERED:
--- NOTE | 2024-12-18 16:30 | ED.GENADUL_ITS ---
Discharge Plan Disposition Patient Disposition: Home Discharge Details Clinical Impression: Ankle sprain Primary Care Provider: Unknown,Unknown ED Provider: Magdaleno Ramírez Discharge Instructions Instructions: Ankle Sprain ED Additional Instructions: Please follow-up with your primary care provider regarding your visit to the emergency department today. Be sure to discuss results of all test performed here today to include radiology, and laboratory testing as well as results for any pending cultures. Should your symptoms worsen, or if you develop new concerning symptoms, please return immediately emergency department for further evaluation. Stand Alone Forms: Portal Information Discharge Data Discharge Date/Time-TO BE ENTERED AT DEPARTURE: 12/18/24 14:15 HPI General Date/Time Provider Initiated Documentation: 12/18/24 13:18 . HPI Narrative: MDM/Narrative: 44-year-old female presents for evaluation of left ankle pain after stepping in a pothole. Exam notable for bilateral malleoli are tenderness no significant swelling. X-rays negative will discharge with crutches and ankle brace follow- up PCP. Clinical impression: Ankle sprain Disposition: Home HPI: 44-year-old female presents for evaluation of left ankle injury after stepping in a pothole this morning. Denies any other injuries or complaints. ROS: Negative besides as mentioned above Exam: Gen: A&O NAD HEENT: NCAT, EOMI, not icteric. External ears normal. No rhinorrhea. Moist mucous membranes. Neck: Supple, full range of motion, no observable masses, No meningeal sign. Lungs: No Respiratory distress. CV: RRR, no edema. Abdomen: Soft, nondistended, No rebound tenderness. MSK: No joint swelling, no redness. There is mild tenderness to palpation of the lateral and medial malleoli of the left ankle DP pulse intact, sensation intact, motor function intact. Skin: No rashes, petechiae, lesions. Normal color per patient. Neuro: Normal Gait, Grossly intact. Psych: Appropriate for situation. Radiology: Exam(s) XR ANKLE LT COMPLETE EXAM: XR ANKLE LT COMPLETE CLINICAL HISTORY: let ankle pain. TECHNIQUE: 2D digital imaging was performed. COMPARISON: No exams were available for comparison FINDINGS: No evidence of acute fracture or widening the ankle mortise. Talar dome unremarkable. Bone density normal. No osseous lesions. No degenerative changes. No evidence of osseous tarsal coalition. No inferior calcaneal spur. Phleboliths are noted in the anterior calf. IMPRESSION: No acute osseous findings in the ankle. Related Data Allergies Allergy/AdvReac Type Severity Reaction Status Date / Time tree nut Allergy Severe Anaphylaxis Verified 12/18/24 13:14 cefaclor (Cefaclor) Allergy Unknown Other (See Unverified 12/18/24 13:14 Comment) diphenhydramine Allergy Other (See Unverified 12/18/24 13:14 Comment) ibuprofen Allergy Other (See Unverified 12/18/24 13:14 Comment) General Stated Complaint: Orthopedic MELCHOR: 4 Course Vital Signs Vital signs: Vital Signs Temperature 36.8 C 12/18/24 13:10 Pulse 87 12/18/24 13:10 Respiratory Rate 20 12/18/24 13:10 Blood Pressure 107/73 12/18/24 13:10 Pulse Oximetry 98 12/18/24 13:10 Temperature 36.8 C 12/18/24 13:10 Pulse 87 12/18/24 13:10 Respiratory Rate 20 12/18/24 13:10 Blood Pressure 107/73 12/18/24 13:10 Blood Pressure Position Sitting 12/18/24 13:10 Pulse Oximetry 98 12/18/24 13:10 Oxygen Delivery Method Room Air 12/18/24 13:10 Oxygen Flow Rate 0 12/18/24 13:10 Pain Level 6 12/18/24 14:09 PFSH All Active Problems (Updated 12/18/24 @ 14:05 by Magdaleno Ramírez MD) Ankle sprain (Acute) Social History Smoking/Tobacco Use Status: Current every day Tobacco Type: cigarettes and e-cigarettes Smoking risk assessment performed?: Yes Alcohol Intake: never Drug use: Daily Substance use type: marijuana Housing: other Do you feel safe at home: Yes Do you feel safe in your relationship?: Yes
== END 2024-12-18 14:15 | disposition home or self-care (01) ==
PROVIDERS: Emergency Provider General Practice
DX: S93.402A Sprain of unspecified ligament of left ankle, initial encounter (principal); X58.XXXA Exposure to other specified factors, initial encounter
CPT/HCPCS: 99283 ×2; 73610